=== PATIENT | male | born 1960 ===

== ENCOUNTER 2024-03-07 09:31 | Emergency (ER) | payer OTHER ==
[~2024-03-07] VITALS: Ht 177.8 cm; Wt 72.7 kg
[2024-03-07 09:36] VITALS: TEMP 97.7
[2024-03-07] MEDS: KETOROLAC TROMETHAMINE 60 MG/2 ML VIAL IM ONE (12:04)
[2024-03-07] MEDS: METHOCARBAMOL 500 MG TABLET PO ONE (12:04)
[2024-03-07] MEDS: HYDROCODONE/ACETAMINOPHEN 5-325 MG TABLET PO ONE (12:04)
[2024-03-07] MEDS ORDERED: METH-659 PO (12:44)
[2024-03-07] MEDS ORDERED: IBUP-1554 PO (12:44)
[2024-03-07] MEDS ORDERED: ACET-2080 PO (12:44)
[2024-03-07 13:20] VITALS: BP 115/61; PULSE 78; RESP 18
== END 2024-03-07 13:30 | disposition home or self-care (01) ==
LOC: EMS 09:31
DX: S39.012A Strain of muscle, fascia and tendon of lower back, initial encounter (principal); X58.XXXA Exposure to other specified factors, initial encounter; Y93.89 Activity, other specified; Y92.89 Other specified places as the place of occurrence of the external cause; Y99.8 Other external cause status
CPT/HCPCS: 99283; 72100; 96372; J1885